=== PATIENT | male | born 1950 | race Caucasian/White ===

== ENCOUNTER 2017-11-08 07:59 | Emergency (ER) | payer MEDICARE ==
[2017-11-08] MEDS ORDERED: Acetaminophen/Codeine 30-300mg Tablet ONE (08:23)
[2017-11-08 08:51] LABS: Bilirubin Negative (Negative); Blood, Urine Negative (Negative); Clarity CLEAR (Clear); Glucose, Urine (Dipstick) Negative (Negative); Leukocyte Negative (Negative); Nitrite Negative (Negative); Protein, Urine (Dipstick) Trace mg/dL (Neg-Trace); Specific Gravity, Urine 1.016 (1.002-1.036); Urobilinogen 0.2 mg/dL (0.2-1.0); pH, Urine 7.5 (5.0-9.0)
--- NOTE | 2017-11-08 08:59 | CT ---
CT ABDOMEN AND PELVIS WITHOUT CONTRAST STONE PROTOCOL: Date: 11-08-17 History: Back pain, abdominal pain, right sided flank pain. Comparison: None. FINDINGS: There is volume loss in the lower lobes posteriorly. No pericardial effusion. There is aneurysmal dil atation of the aorta measuring 6.3 x 6.3 cm for a craniocaudad length of 12 cm. There is a obstructiv e calculus at the right proximal ureter measuring 2-3 mm causing moderate right sided hydronephrosis. This is caudad to the renal pelvis approximately 7 cm. No left sided hydroureteral nephrosis or neph roureterolithiasis. No acute osseous abnormality. No dilated air filled loops of large or small bowel. Appendix is visualized and is normal. IMPRESSION: 1. Partially obstructive calculus proximal right ureter, 6-7 cm distal to the right renal pelvis mel[place] uring 2-3 mm. Moderate right sided hydroureteronephrosis proximally. 2. Aneurysmal dilatation of the abdominal aorta extending from the level of the renal arteries down t o the bifurcation of the iliacs measuring 6.3 x 6.3 cm with a craniocaudal length of approximately 12 cm. CODE: T POS: [facility]
[2017-11-08] MEDS ORDERED: Ketorolac Tromethamine 30 MG/ML VIAL ONE (09:20)
[2017-11-08 09:52] LABS: #Basophils 0.1 thou/uL (0.0-0.2); #Eosinphils 0.1 thou/uL (0.0-0.7); #Monocytes 1.3 thou/uL (0.11-0.59); #Neutrophils 13.5 thou/uL (1.40-6.50); %Basophils 0.5 % (0.0-1.0); %Eosinophils 0.6 % (0.0-10.0); %Lymphocytes 11.6 % (21.0-51.0); %Monocytes 7.5 % (0.0-10.0); %Neutrophils 79.8 % (42.0-75.0); Mean Corpuscular Hemoglobin 33.7 pg (27.0-31.0); Mean Platelet Volume 8.2 fL (7.4-10.4); Platelet Count 282 thou/uL (130-400); RBC Distribution Width 14.4 % (11.5-14.5); Red Blood Cell (RBC) Count 5.04 mill/uL (4.70-6.10); White Blood Cell (WBC) Count 16.9 thou/uL (4.8-10.8)
[2017-11-08 10:20] LABS: ALT (SGPT) 18 U/L (8-55); AST (SGOT) 24 U/L (5-34); Albumin 3.7 g/dL (3.4-4.8); Alkaline Phosphatase 86 U/L (40-150); Anion Gap 16 mmol/L (10-20); BUN (Urea Nitrogen) 15 mg/dL (8.4-25.7); Bilirubin, Total 1.1 mg/dL (0.2-1.2); Calc. Creatinine Clearance 0 mL/min (70-130); Calcium 9.1 mg/dL (7.8-10.44); Carbon Dioxide 20 mmol/L (23-31); Chloride 103 mmol/L (98-107); Estimated GFR-MDRD 67; Globulin 3.6 g/dL (2.4-3.5); Glucose 106 mg/dL (80-115); Potassium 4.9 mmol/L (3.5-5.1); Protein, Total 7.3 g/dL (5.8-8.1); Sodium 134 mmol/L (136-145)
== END 2017-11-08 10:50 | disposition home or self-care (01) ==
LOC: ERS 07:59
DX: N13.2 Hydronephrosis with renal and ureteral calculous obstruction (principal); I71.4 Abdominal aortic aneurysm, without rupture; I10 Essential (primary) hypertension; J44.9 Chronic obstructive pulmonary disease, unspecified; F17.210 Nicotine dependence, cigarettes, uncomplicated
CPT/HCPCS: 36415; 74176; 80053; 81003; 85025; 96372; J1885

== ENCOUNTER 2018-04-26 06:32 | Outpatient (CLI) | payer MEDICARE | END 2018-04-26 06:33 | disposition home or self-care (01) | LOC: BICULT 06:32 | PROVIDERS: ATTEND Family Medicine | DX: Z13.6 Encounter for screening for cardiovascular disorders (principal); I71.4 Abdominal aortic aneurysm, without rupture | CPT/HCPCS: 76775 ==

== ENCOUNTER 2018-05-06 11:32 | Emergency (ER) | payer MEDICARE ==
[2018-05-06] MEDS ORDERED: ISOVUE-370 76%-LOCM 1 ML ONE (12:23)
[2018-05-06 13:33] LABS: #Eosinphils 0.4 thou/uL (0.0-0.7); #Lymphocytes 2.9 thou/uL (1.20-3.40); #Monocytes 1.5 thou/uL (0.11-0.59); #Neutrophils 11.9 thou/uL (1.40-6.50); %Basophils 0.3 % (0.0-1.0); %Eosinophils 2.4 % (0.0-10.0); %Lymphocytes 17.4 % (21.0-51.0); %Monocytes 8.8 % (0.0-10.0); %Neutrophils 71.1 % (42.0-75.0); Hemoglobin 17.5 g/dL (14.0-18.0); Mean Corpuscular HGB CONC 32.5 g/dL (32.0-36.0); Mean Corpuscular Hemoglobin 33.5 pg (27.0-31.0); Mean Platelet Volume 8.4 fL (7.4-10.4); Platelet Count 337 thou/uL (130-400); RBC Distribution Width 14.8 % (11.5-14.5); Red Blood Cell (RBC) Count 5.22 mill/uL (4.70-6.10); White Blood Cell (WBC) Count 16.8 thou/uL (4.8-10.8)
[2018-05-06 13:54] LABS: Anion Gap 15 mmol/L (10-20); BUN (Urea Nitrogen) 21 mg/dL (8.4-25.7); Calc. Creatinine Clearance 0 mL/min (70-130); Calcium 10.1 mg/dL (7.8-10.44); Carbon Dioxide 24 mmol/L (23-31); Chloride 101 mmol/L (98-107); Estimated GFR-MDRD 42; Glucose 99 mg/dL (80-115); Sodium 136 mmol/L (136-145)
--- NOTE | 2018-05-06 14:02 | CT ---
CT OF ABDOMEN AND PELVIS PERFORMED WITHOUT CONTRAST ENHANCEMENT: History: Right flank pain and dysuria. Comparison: 11-08-17 FINDINGS: The lung bases show some mainly chronic appearing changes with subsegmental atelectasis. The liver, spleen, pancreas, and gallbladder regions appear unremarkable. Right and left adrenal glands both have slightly hyperplastic appearance. Right and left kidneys are normal in size. There are vascular calcifications noted. There is moderate right sided hydronephrosis and hydroureter with perinephric and periureteral fat stranding. The uterus dilate to approximately mid pelvis level where there is approximately 4 mm calculus present. This is approximately 3 cm proxi mal to the right ureterovesical junction. It is possible that this represents 4 mm calcification and a tiny punctate calcification directly adjacent to it. This appears to represent migration of the chantel culus that was seen more proximally on the prior examination. A infrarenal abdominal aortic aneurysm is again demonstrated. It measures approximately 6.5 cm in siz e measured in the 6.3 to 6.4 cm range on the prior examination. Fat containing paraumbilical hernia is noted. The appendix is normal. IMPRESSION: 1. Moderate right sided hydronephrosis and hydroureter related to an approximately 4 mm distal right ureteral calculus located approximately 3 cm proximal to the right ureterovesical junction. There may actually be two small calculi at this level. 2. 6.5 cm infrarenal abdominal aortic aneurysm. On the previous examination, measurement is fairly si milar measuring in the 6.3 to 6.4 cm range. Other incidental findings as noted above. POS: [facility]
[2018-05-06 15:20] LABS: Bilirubin Negative (Negative); Blood, Urine Negative (Negative); Clarity CLEAR (Clear); Glucose, Urine (Dipstick) Negative (Negative); Leukocyte Negative (Negative); Nitrite Negative (Negative); Protein, Urine (Dipstick) Trace mg/dL (Neg-Trace); Specific Gravity, Urine 1.018 (1.002-1.036)
== END 2018-05-06 16:04 | disposition home or self-care (01) ==
LOC: ERS 11:32
DX: N13.2 Hydronephrosis with renal and ureteral calculous obstruction (principal); I12.9 Hypertensive chronic kidney disease with stage 1 through stage 4 chronic kidney disease, or unspecified chronic kidney disease; N18.9 Chronic kidney disease, unspecified; I71.4 Abdominal aortic aneurysm, without rupture; J44.9 Chronic obstructive pulmonary disease, unspecified; F17.210 Nicotine dependence, cigarettes, uncomplicated; Z79.899 Other long term (current) drug therapy
CPT/HCPCS: 36415; 74176; 80048; 81003; 85025

== ENCOUNTER 2018-08-30 08:53 | Outpatient (CLI) | payer MEDICARE ==
--- NOTE | 2018-08-30 09:54 | ULT ---
CAROTID ULTRASOUND WITH GRAYSCALE AND DOPPLER DUPLEX COLORFLOW IMAGING SPECTRAL ANALYSIS PERFORMED: INDICATIONS: Aortic aneurysm without rupture. FINDINGS: There is scattered moderate atherosclerotic calcification of the carotid arteries. PEAK SYSTOLIC VELOCITY (CM/S): Right CCA 73 Left CCA 117 Right ICA 133 Left ICA 105 There is antegrade flow within the visualized bilateral vertebral arteries. IMPRESSION: 1. Moderate (50%-69%) stenosis of the right internal carotid artery. 2. No hemodynamically significant stenosis of the left internal carotid artery. POS: [facility]
== END 2018-08-30 08:54 | disposition home or self-care (01) ==
LOC: BICULT 08:53
DX: I65.23 Occlusion and stenosis of bilateral carotid arteries (principal); I65.21 Occlusion and stenosis of right carotid artery
CPT/HCPCS: 93880

== ENCOUNTER 2018-11-26 14:59 | Inpatient (IN) | payer MEDICARE ==
[~2018-11-26 14:59] MED LIST: ISOVUE-370 76%-LOCM 1 ML ONE
[2018-11-26 15:43] LABS: Mean Corpuscular HGB CONC 33.2 g/dL (32.0-36.0); Mean Corpuscular Hemoglobin 34.5 pg (27.0-31.0); Platelet Count 246 thou/uL (130-400); RBC Distribution Width 14.7 % (11.5-14.5); Red Blood Cell (RBC) Count 4.63 mill/uL (4.70-6.10)
[2018-11-26 16:00] LABS: Anisocytosis SLIGHT = 6-15 cells (100X) (0-5/hpf); Band 32 % (5-11); Lymphocytes 8 % (21-51); MDiff Complete? YES; Monocytes 3 % (0-10); Neutrophil 57 % (42-75); Platelet Morphology Comment Appears Adequate
[2018-11-26 16:03] LABS: ALT (SGPT) 18 U/L (8-55); AST (SGOT) 21 U/L (5-34); Albumin 3.9 g/dL (3.4-4.8); Alkaline Phosphatase 108 U/L (40-150); Anion Gap 13 mmol/L (10-20); BUN (Urea Nitrogen) 16 mg/dL (8.4-25.7); Bilirubin, Total 1.8 mg/dL (0.2-1.2); Calc. Creatinine Clearance 0 mL/min (70-130); Calcium 9.8 mg/dL (7.8-10.44); Carbon Dioxide 26 mmol/L (23-31); Chloride 99 mmol/L (98-107); Estimated GFR-MDRD 52; Globulin 3.7 g/dL (2.4-3.5); Glucose 101 mg/dL (80-115); Potassium 4.3 mmol/L (3.5-5.1); Protein, Total 7.6 g/dL (5.8-8.1); Sodium 134 mmol/L (136-145)
--- NOTE | 2018-11-26 16:28 | RAD ---
PORTABLE CHEST: 11/26/18 HISTORY: Epigastric pain. Heart size is within normal limits. There are atherosclerotic changes of the aorta. There is some mil d chronic appearing lung changes seen. No signs of fracture or focal infiltrates. IMPRESSION: Chronic appearing lung change. POS: [facility]
[2018-11-26 16:51] LABS: Bilirubin Small (Negative); Blood, Urine Negative (Negative); Clarity CLEAR (Clear); Glucose, Urine (Dipstick) Negative (Negative); Leukocyte Negative (Negative); Nitrite Negative (Negative); Protein, Urine (Dipstick) 100 mg/dL (Neg-Trace); Specific Gravity, Urine 1.024 (1.002-1.036)
[2018-11-26 16:53] LABS: Pathc Cast-AUWi Flag 1.36 (0-2.49); Squamous Epithelial 0-3 HPF (0-3)
[2018-11-26 17:04] LABS: Bacteria/HPF Rare-Few HPF (None Seen); Hyaline Casts/LPF 0-3 HYALINE CAST LPF (0-3 Hyaline)
[2018-11-26 17:05] LABS: Renal Epithelial None Seen HPF (0-3); Transitional Epithelial NONE SEEN HPF (0-3)
[2018-11-26] MEDS ORDERED: Acetaminophen 325 MG TAB ONE (17:37)
[2018-11-26] MEDS ORDERED: Piperacillin/Tazobactam 4.5 GM VIAL ONE (17:37)
[2018-11-26] MEDS ORDERED: Nicotine 14 MG PATCH TOP SCH (18:30)
--- NOTE | 2018-11-26 19:47 | CT ---
CT OF ABDOMEN AND PELVIS PERFORMED WITH INTRAVENOUS CONTRAST ENHANCEMENT: 11/26/18 HISTORY: Abdominal pain, fever, and chills. COMPARISON: 05/06/18 study. The lung bases show some atelectatic change. The liver, spleen, and pancreas as well as gallbladder r egions appear unremarkable. Right and left adrenal glands are normal. There is a nonobstructing 4 to 5 mm lower pole right renal calculus. There are vascular calcifications associated with both the right and left renal pelvis. No ureteral dilatation or evidence for a ureteral calculus. The infrarenal abdominal aortic aneurysm has increased in size and measures 7.1 cm as compared to measurements more in the 6.5 to 6.6 cm range on the prior examination. It extends to the bifurcation, but does not involve the iliac arteries. There is marked inflammatory changes around the right colon, mainly the cecum region and what appears to represent a contained perforation. This is not related to the appendix as the appendix is actuall y visualized extending into the right inguinal canal. It is normal in caliber. Bladder wall appears slightly thickened even considering underdistention. No free fluid within the pe lvis. IMPRESSION: 1. Marked inflammatory change around the right colon mainly the cecum region. I suspect that the re is a contained perforation. There is wall thickening in this region. The etiology of this is uncle ar. It could be related to diverticular disease or other causes of colitis. The appendix itself is no rmal in caliber. The tip of the appendix actually extends into the right inguinal canal. No free air is demonstrated and no free fluid or any defined abscess collection. 2. Interval increase in size of the infrarenal abdominal aortic aneurysm, now measuring 7.1 cm. 3. Punctate nonobstructing right renal calculus. 4. Fat containing periumbilical hernia. POS: [facility] [place]
[2018-11-26] MEDS ORDERED: cloNIDine 0.1 MG TAB PO PRN (20:52)
[2018-11-26] MEDS ORDERED: hydrALAZINE 20 MG/ML VIAL SLOW IVP PRN (20:52)
[2018-11-26] MEDS ORDERED: Senokot S 8.6-50 MG TAB PO PRN (20:52)
[2018-11-26] MEDS ORDERED: Guaifenesin DM 100-10/5 ML UDCUP PO PRN (20:52)
[2018-11-26] MEDS ORDERED: HYDROcodone/Acetaminophen 7.5/325 mg Tablet PO PRN ×2 (20:52)
[2018-11-26] MEDS ORDERED: Nicotine 21 MG PATCH TD SCH (20:52)
[2018-11-26] MEDS ORDERED: Acetaminophen 325 MG TAB PO PRN (20:52)
[2018-11-26] MEDS ORDERED: Ondansetron ODT 4 MG TAB PO PRN (20:52)
[2018-11-26] MEDS ORDERED: Ondansetron PF 4 MG/2 ML Vial IVP PRN (20:52)
[2018-11-26] MEDS ORDERED: Acetaminophen 650 MG Suppository PR PRN (20:52)
[2018-11-26] MEDS ORDERED: Zolpidem Tartrate 5 MG TAB PO PRN (20:52)
[2018-11-26] MEDS ORDERED: Melatonin 3 MG TAB PO SCH (21:00)
[2018-11-26] MEDS ORDERED: Diazepam 5 MG TAB PO PRN (21:06)
[2018-11-26] MEDS ORDERED: Diazepam 5 MG TAB PO SCH (21:15)
[2018-11-26] MEDS ORDERED: Thiamine HCl 200 MG/2 ML VIAL IM SCH (21:15)
[2018-11-26] MEDS: Famotidine 20 MG TAB PO SCH (21:18)
[2018-11-26] MEDS: Sodium Chloride 0.9% 1,000 ML IV SCH (21:18)
[2018-11-26] MEDS ORDERED: Meropenem 1 GM in Sodium Chloride 0.9% 100 ML IVPB SCH (22:00)
[2018-11-26 22:20] VITALS: BMI 30.7
[2018-11-26] MEDS: MEROPENEM 1 GM/50 ML 1 GM in Premix Bag 1 BAG IVPB SCH (22:53)
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
[2018-11-27] MEDS ORDERED: Diazepam 5 MG TAB PO PRN (04:00)
[2018-11-27] MEDS: MEROPENEM 1 GM/50 ML 1 GM in Premix Bag 1 BAG IVPB SCH ×2 (05:01→16:56)
[2018-11-27] MEDS: Sodium Chloride 0.9% 1,000 ML IV SCH (05:02)
[2018-11-27 05:12] LABS: #Basophils 0.1 thou/uL (0.0-0.2); #Eosinphils 0.3 thou/uL (0.0-0.7); #Lymphocytes 2.3 thou/uL (1.20-3.40); #Monocytes 1.7 thou/uL (0.11-0.59); #Neutrophils 14.1 thou/uL (1.40-6.50); %Basophils 0.4 % (0.0-1.0); %Eosinophils 1.6 % (0.0-10.0); %Lymphocytes 12.2 % (21.0-51.0); %Monocytes 9.4 % (0.0-10.0); %Neutrophils 76.4 % (42.0-75.0); Hemoglobin 14.5 g/dL (14.0-18.0); Mean Corpuscular HGB CONC 32.9 g/dL (32.0-36.0); Mean Corpuscular Hemoglobin 33.9 pg (27.0-31.0); Mean Platelet Volume 8.9 fL (7.4-10.4); Platelet Count 235 thou/uL (130-400); RBC Distribution Width 14.6 % (11.5-14.5); Red Blood Cell (RBC) Count 4.28 mill/uL (4.70-6.10); White Blood Cell (WBC) Count 18.5 thou/uL (4.8-10.8)
[2018-11-27 05:35] LABS: Anion Gap 12 mmol/L (10-20); BUN (Urea Nitrogen) 13 mg/dL (8.4-25.7); Calc. Creatinine Clearance 89 mL/min (70-130); Calcium 8.4 mg/dL (7.8-10.44); Carbon Dioxide 22 mmol/L (23-31); Chloride 103 mmol/L (98-107); Estimated GFR-MDRD 67; Glucose 95 mg/dL (80-115); Potassium 3.8 mmol/L (3.5-5.1); Sodium 133 mmol/L (136-145)
--- NOTE | 2018-11-27 08:46 | PDOC.GSPN ---
Surgery Progress Note: Subj - Subjective Narrative: Patient feels good. He denies any abdominal pain. No nausea or vomiting. No fevers overnight. White count is down a little bit. He still has some tenderness in the right lower quadrant but this is much less than yesterday and very mild. No rigidity rebound or guarding. Assessment/plan: Colitis responding to medical management. Okay from a surgical standpoint to advance his diet. Continue antibiotics. Surgery Progress Note: Obj - Vital signs Vital signs: Vital Signs - Most Recent Temp Pulse Resp BP Pulse Ox 98.5 F 78 16 118/71 94 L 11/27/18 07:21 11/27/18 07:21 11/27/18 07:21 11/27/18 07:21 11/27/18 07:21 Surgery Progress Note: Results - Labs Result Diagrams: 11/27/18 04:54 11/27/18 04:54 Lab results: Laboratory Results - last 24 hr 11/27/18 11/27/18 04:54 04:54 WBC 18.5 H RBC 4.28 L Hgb 14.5 Hct 44.0 MCV 103.0 H MCH 33.9 H MCHC 32.9 RDW 14.6 H Plt Count 235 MPV 8.9 Neutrophils % 76.4 H Lymphocytes % 12.2 L Monocytes % 9.4 Eosinophils % 1.6 Basophils % 0.4 Neutrophils # 14.1 H Lymphocytes # 2.3 Monocytes # 1.7 H Eosinophils # 0.3 Basophils # 0.1 Sodium 133 L Potassium 3.8 Chloride 103 Carbon Dioxide 22 L Anion Gap 12 BUN 13 Creatinine 1.09 Estimated GFR (MDRD) 67 Glucose 95 Calcium 8.4
[2018-11-27] MEDS ORDERED: Thiamine 100 MG TAB PO SCH (09:00)
[2018-11-27] MEDS ORDERED: Folic Acid 1 MG TAB PO SCH (09:00)
[2018-11-27] MEDS ORDERED: Multivitamin W/ Minerals 1 TAB PO SCH (09:00)
[2018-11-27] MEDS ORDERED: Enoxaparin Sodium 40 MG/0.4 ML SYRINGE SC SCH (09:00)
[2018-11-27] MEDS ORDERED: Magnesium Oxide 400 MG TAB PO SCH (09:00)
--- NOTE | 2018-11-27 09:18 | PDOC.PN ---
- Subjective Encounter Start Date: 11/27/18 Encounter Start Time: 11:30 Subjective: Patient reports complete resolution of pain. No pain on palpation. ( -: thinks he is lying about this so he can leave today.) No N/V. No fever. -: Normal bowel movement this AM without blood or mucus. - Objective Resuscitation Status - Order Detail: 11/26/18 20:05 Resuscitation Status Routine Resuscitation Status: FULL: Full Resuscitation Discussed with: Patient MAR Reviewed: Yes Vital Signs & Weight: Vital Signs (12 hours) Temp Pulse Resp BP Pulse Ox 11/27/18 07:21 98.5 F 78 16 118/71 94 L 11/27/18 04:00 98.5 F 86 20 116/73 93 L 11/26/18 23:36 98.3 F 80 20 125/80 93 L Weight Weight 220 lb 7.396 oz Result Diagrams: 11/27/18 04:54 11/27/18 04:54 Phys Exam - Physical Examination Constitutional: NAD HEENT: moist MMs Respiratory: no wheezing, no rales, no rhonchi Cardiovascular: RRR, no significant murmur Gastrointestinal: soft, non-tender, no distention, positive bowel sounds Neurological: non-focal, moves all 4 limbs Psychiatric: normal affect, A&O x 3 Dx/Plan (1) Infectious colitis Code(s): A09 - INFECTIOUS GASTROENTERITIS AND COLITIS, UNSPECIFIED Status: Acute Comment: improving, advance diet, continue antibiotics- Meropenem since 11/26/18 (2) Sepsis Code(s): A41.9 - SEPSIS, UNSPECIFIED ORGANISM Status: Acute Comment: improving (3) COPD (chronic obstructive pulmonary disease) Status: Chronic (4) HTN (hypertension) Code(s): I10 - ESSENTIAL (PRIMARY) HYPERTENSION Status: Chronic (5) Alcohol abuse Code(s): F10.10 - ALCOHOL ABUSE, UNCOMPLICATED Status: Chronic Comment: [facility] protocol (6) Tobacco abuse Code(s): Z72.0 - TOBACCO USE Status: Chronic - Plan cont current plan of care, continue antibiotics, out of bed/ambulate, DVT proph w/lovenox, DVT proph w/SCDs Patient insistent on leaving today. I stressed to him that we need to give -: at least one more day of IV antibiotics and make sure pain continues to -: improve and able to tolerate diet. He eventually reluctantly agreed to stay -: until tomorrow morning when we recheck CBC. * . - Discharge Day Encounter end time: 11:40
[2018-11-27] MEDS: Famotidine 20 MG TAB PO SCH (09:47)
[2018-11-27 15:42] VITALS: BP 124/73; TEMP 98.3
--- NOTE | 2018-11-28 07:56 | DIS ---
DATE OF ADMISSION: 11/26/2018 DATE OF DISCHARGE: 11/27/2018 PRIMARY CARE PHYSICIAN: Dr. Inocencio Graham. REASON FOR ADMISSION: Abdominal pain and fever. DIAGNOSES AT DISCHARGE: 1. Infectious colitis with possible contained perforation. 2. Sepsis. 3. Chronic obstructive pulmonary disease. 4. Hypertension. 5. Alcohol abuse. 6. Tobacco abuse. 7. Enlarging abdominal aortic aneurysm, asymptomatic. PROCEDURES: CT abdomen and pelvis with contrast showing marked inflammatory change on the right colon mainly the cecal region, suspecting a contained perforation with some wall thickening in the region, possibly related to diverticular disease versus colitis. Normal appearing appendix. Also with continued abdominal aortic aneurysm, now 7.1 cm in size. CONSULTATIONS: General Surgery, Dr. Simons. SUMMARY OF HOSPITAL COURSE: This is a 68-year-old white male, complaining of a 2-day history of right lower quadrant abdominal pain, coming and going in intensity, associated with fevers and chills. He had an elevated white blood cell count and tachycardia in the emergency room, had a CT scan with above results. The patient was given antibiotics in the emergency room and started on meropenem. He was admitted to the hospital. Dr. Simons was consulted, who determined this was nonsurgical and recommended antibiotic treatment. The patient had resolution of his pain overnight. He was able to eat a normal diet today. No fever. His white blood cell count did improve from 24,000 to 18,000. I did strongly recommend that we do at least one more day of IV antibiotics, however, patient continued to insist on going home. Dr. Simons stated that he did not need surgery and that he could be discharged from a surgical standpoint. The patient is not nauseated or vomiting, and is having normal bowel movements and eating well, so I am letting him go home on oral antibiotics. I am recommending that he stop all alcohol while he is on his antibiotics as it can interact with the metronidazole and make him nauseated. DISCHARGE MANAGEMENT: Discharged home. ACTIVITY: As tolerated. DIET: Healthy heart diet. FOLLOWUP: Follow up with Dr. Graham in 7 days. He will need to discuss the enlarging aortic aneurysm and consider getting follow up with a specialist for endovascular repair, which is how he wants it. DISCHARGE MEDICATIONS: 1. Ciprofloxacin 500 mg twice a day for 12 days. 2. Metronidazole 500 mg 3 times a day for 12 days. 3. Continue amlodipine 5 mg daily. 4. Advair Diskus 250/50 mcg, one puff inhaled as directed. 5. Incruse Ellipta one inhalation daily. 6. Hyzaar 50/12.5 mg one tablet twice a day. Arranging the details of this discharge took 35 minutes. Job ID: [id number]
== END 2018-11-27 16:51 | disposition home or self-care (01) | DRG 872 ==
LOC: ERS 14:59 → SURG B 18:55
PROVIDERS: ADMIT Emergency Medicine; ATTEND Emergency Medicine
DX: A41.9 Sepsis, unspecified organism (principal); K57.92 Diverticulitis of intestine, part unspecified, without perforation or abscess without bleeding; A09 Infectious gastroenteritis and colitis, unspecified; J44.9 Chronic obstructive pulmonary disease, unspecified; I10 Essential (primary) hypertension; F17.210 Nicotine dependence, cigarettes, uncomplicated; I71.4 Abdominal aortic aneurysm, without rupture; F10.10 Alcohol abuse, uncomplicated; Z79.52 Long term (current) use of systemic steroids; Z79.899 Other long term (current) drug therapy
CPT/HCPCS: 36415; 71045; 74177; 80048; 80053; 81003; 81015; 83605; 85025; 87040; 87086; 93005; 96361; 96365; 96366; J1650; J2185; J2543; J3370; J3411; J3475; J3490; J7050; Q9966

== ENCOUNTER 2020-02-16 07:59 | Outpatient (CLI) | payer MEDICARE ==
[2020-02-16] MEDS ORDERED: Iopamidol-370 76% 500 ML 1 ML ONE (09:43)
--- NOTE | 2020-02-16 09:54 | CT ---
CT ABDOMEN AND PELVIS WITH IV CONTRAST: Date: 02/16/2020 HISTORY: Right-sided flank pain. Abdominal aortic aneurysm. COMPARISON: 11/26/2018. FINDINGS: Atelectatic changes in the lung bases are again seen. Liver, spleen, pancreas, and left kidney are normal. Prominent adrenal glands are stable. There is a 6.0 mm calculus in the right kidney. Right perinephric inflammatory changes are stable. No hydrourete ronephrosis is noted on either side. No free air, free fluid, or lymphadenopathy seen in the abdomen or pelvis. There has been interval in crease in size of the intrarenal abdominal aortic aneurysm which currently measures 8.0 cm. The small bowel loops are not abnormally dilated. Fat-containing right periumbilical hernia is again seen. There is colonic diverticulosis. There is right inguinal hernia containing fat and a normal appearing appendix. There are degenerative changes in the spine. IMPRESSION: 1. Increasing size of the abdominal aortic aneurysm since 11/26/2018, currently measuring 8.0 cm. 2. Nonobstructing 6.0 mm right renal calculus. 3. Right inguinal hernia containing appendix. 4. Colonic diverticulosis. CODE T. POS: [facility]
== END 2020-02-16 08:00 | disposition home or self-care (01) ==
LOC: BICCT 07:59
PROVIDERS: ATTEND Family Medicine
DX: I71.4 Abdominal aortic aneurysm, without rupture (principal); R10.9 Unspecified abdominal pain; N20.0 Calculus of kidney; K40.90 Unilateral inguinal hernia, without obstruction or gangrene, not specified as recurrent; K57.30 Diverticulosis of large intestine without perforation or abscess without bleeding
CPT/HCPCS: 74177; Q9967

== ENCOUNTER 2020-04-12 10:23 | Outpatient (CLI) | payer MEDICARE ==
--- NOTE | 2020-04-12 10:52 | RAD ---
EXAM: Single view of the abdomen HISTORY: History of kidney stones COMPARISON: None FINDINGS: Single view of the abdomen shows a nonspecific, nonobstructive bowel gas pattern. No suspi cious calcifications are seen. Mild degenerative changes are seen in the spine. IMPRESSION: Unremarkable exam
--- NOTE | 2020-04-12 10:59 | RAD ---
EXAM: 2 views of the lumbosacral spine HISTORY: Low back pain COMPARISON: None FINDINGS: 2 views of the lumbosacral spine shows normal height and alignment of the vertebral bodies and intervertebral discs without fracture or subluxation. Small osteophytes are seen throughout the lumbar spine. Posterior facet arthrosis is seen in the lower lumbosacral spine. The sacroiliac joints are unremarkable. IMPRESSION: Degenerative changes of the lumbar spine without acute osseous abnormality
--- NOTE | 2020-04-12 11:00 | RAD ---
EXAM: 3 views of the thoracic spine HISTORY: Thoracic spine pain COMPARISON: None FINDINGS: 3 views of the thoracic spine shows normal height and alignment of the vertebral bodies and intervertebral discs without fracture or subluxation. No significant degenerative changes are seen. IMPRESSION: No significant thoracic spine abnormality.
== END 2020-04-12 10:24 | disposition home or self-care (01) ==
LOC: BICRAD 10:23
PROVIDERS: ATTEND Physician Assistant
DX: M54.6 Pain in thoracic spine (principal); M54.5 Low back pain; Z87.442 Personal history of urinary calculi; M47.816 Spondylosis without myelopathy or radiculopathy, lumbar region
CPT/HCPCS: 72072; 72100; 74018

== ENCOUNTER 2021-04-04 07:31 | Outpatient (CLI) | payer MEDICARE | END 2021-04-04 07:32 | disposition home or self-care (01) | LOC: BICCT 07:31 | PROVIDERS: ATTEND Family Medicine | DX: Z12.2 Encounter for screening for malignant neoplasm of respiratory organs (principal); F17.210 Nicotine dependence, cigarettes, uncomplicated; J43.2 Centrilobular emphysema; J98.8 Other specified respiratory disorders; R59.0 Localized enlarged lymph nodes; R91.1 Solitary pulmonary nodule | CPT/HCPCS: 71271 ==

== ENCOUNTER 2021-07-15 12:17 | Inpatient (IN) | payer MEDICARE ==
[~2021-07-15 12:17] MED LIST changes: -ISOVUE-370 76%-LOCM 1 ML ONE; +Iopamidol-370 76% 500 ML 1 ML ONE; +Lorazepam 1 MG TAB PO PRN; +Lorazepam 1 MG TAB PO SCH
[2021-07-15 12:55] LABS: #Basophils 0.1 thou/uL (0.0-0.2); #Eosinphils 0.5 thou/uL (0.0-0.7); #Lymphocytes 2.6 thou/uL (1.20-3.40); #Neutrophils 6.1 thou/uL (1.40-6.50); %Basophils 0.8 % (0.0-1.0); %Eosinophils 4.7 % (0.0-10.0); %Lymphocytes 25.4 % (21.0-51.0); Mean Corpuscular HGB CONC 33.4 g/dL (32.0-36.0); Mean Corpuscular Hemoglobin 34.2 pg (27.0-31.0); Mean Platelet Volume 9.2 fL (7.4-10.4); Platelet Count 264 thou/uL (130-400); RBC Distribution Width 17.7 % (11.5-14.5); Red Blood Cell (RBC) Count 4.69 mill/uL (4.70-6.10); White Blood Cell (WBC) Count 10.4 thou/uL (4.8-10.8)
[2021-07-15 13:09] LABS: INR-International Normal Ratio 0.9; Prothrombin Time 12.4 sec (12.0-14.7)
[2021-07-15 13:10] LABS: PTT 30.8 sec (22.9-36.1)
[2021-07-15 13:12] LABS: ALT (SGPT) 17 U/L (8-55); AST (SGOT) 12 U/L (5-34); Albumin 3.7 g/dL (3.4-4.8); Alkaline Phosphatase 83 U/L (40-110); Anion Gap 12 mmol/L (10-20); BUN (Urea Nitrogen) 17 mg/dL (8.4-25.7); Bilirubin, Total 0.7 mg/dL (0.2-1.2); Calc. Creatinine Clearance 0 mL/min (70-130); Calcium 9.2 mg/dL (7.8-10.44); Carbon Dioxide 27 mmol/L (23-31); Chloride 104 mmol/L (98-107); Globulin 3.1 g/dL (2.4-3.5); Glucose 121 mg/dL (83-110); Protein, Total 6.8 g/dL (5.8-8.1); Sodium 139 mmol/L (136-145)
[2021-07-15] MEDS ORDERED: Aspirin 325 MG TAB ONE (13:30)
[2021-07-15] MEDS ORDERED: Acetaminophen 325 MG TAB PO PRN (14:53)
[2021-07-15] MEDS ORDERED: Ondansetron PF 4 MG/2 ML Vial IVP PRN (14:53)
[2021-07-15] MEDS ORDERED: hydrALAZINE 20 MG/ML VIAL SLOW IVP PRN (14:56)
[2021-07-15] MEDS ORDERED: Sodium Chloride 0.9% 1,000 ML IV SCH ×2 (15:00→20:30)
[2021-07-15] MEDS ORDERED: Nicotine 21 MG PATCH TD SCH (15:00)
[2021-07-15] MEDS ORDERED: Mometasone 200 MCG/Formoterol 5 MCG 120 PUFF INHALER INH PRN (15:19)
[2021-07-15 18:08] VITALS: BMI 33.8
[2021-07-15] MEDS: Albuterol 200 PUFF (6.7GM INHALER) INH SCH (19:27)
[2021-07-15] MEDS: Ipratropium Bromide 2.5 ml Neb NEB SCH (19:28)
[2021-07-15] MEDS ORDERED: Atorvastatin Calcium 40 MG TAB PO SCH (21:00)
[2021-07-15] MEDS ORDERED: Electrolyte Replacement Protocol 1 EACH FS PRN (23:00)
[2021-07-15] MEDS ORDERED: Thiamine HCl 200 MG/2 ML VIAL SLOW IVP SCH (23:00)
[2021-07-15] MEDS ORDERED: Ondansetron ODT 4 MG TAB PO PRN (23:00)
[2021-07-15] MEDS ORDERED: Lorazepam 2 MG/ML VIAL IM PRN (23:00)
[2021-07-16] MEDS ORDERED: Lorazepam 1 MG TAB PO SCH ×3 (00:45→06:00)
[2021-07-16] MEDS ORDERED: Lorazepam 2 MG/ML VIAL IM PRN (00:45)
[2021-07-16] MEDS: Ipratropium Bromide 2.5 ml Neb NEB SCH ×2 (02:00→07:33)
[2021-07-16 05:07] VITALS: TEMP 97.7
[2021-07-16 06:37] LABS: #Basophils 0.1 thou/uL (0.0-0.2); #Eosinphils 0.6 thou/uL (0.0-0.7); #Lymphocytes 2.2 thou/uL (1.20-3.40); #Monocytes 1.1 thou/uL (0.11-0.59); #Neutrophils 6.5 thou/uL (1.40-6.50); %Basophils 1.2 % (0.0-1.0); %Eosinophils 5.5 % (0.0-10.0); %Lymphocytes 20.9 % (21.0-51.0); %Monocytes 10.6 % (0.0-10.0); %Neutrophils 61.9 % (42.0-75.0); Hemoglobin 16.5 g/dL (14.0-18.0); Mean Corpuscular HGB CONC 32.1 g/dL (32.0-36.0); Mean Platelet Volume 9.6 fL (7.4-10.4); Platelet Count 262 thou/uL (130-400); RBC Distribution Width 17.5 % (11.5-14.5); White Blood Cell (WBC) Count 10.6 thou/uL (4.8-10.8)
[2021-07-16 07:07] LABS: Anion Gap 16 mmol/L (10-20); BUN (Urea Nitrogen) 17 mg/dL (8.4-25.7); Calc. Creatinine Clearance 90 mL/min (70-130); Calcium 9.3 mg/dL (7.8-10.44); Carbon Dioxide 20 mmol/L (23-31); Cardiac Risk 4.7 (Less than 4.5); Chloride 107 mmol/L (98-107); Cholesterol 174 mg/dl (< 200 Desired); Glucose 85 mg/dL (83-110); HDL Cholesterol 37 mg/dL (>60 Neg Risk); LDL Cholesterol, Calculated 90 mg/dL; Potassium 4.6 mmol/L (3.5-5.1); Sodium 138 mmol/L (136-145); Triglycerides 236 mg/dL (Less than 150)
[2021-07-16] MEDS: Albuterol 200 PUFF (6.7GM INHALER) INH SCH (07:32)
[2021-07-16] MEDS: Enoxaparin Sodium 40 MG/0.4 ML SYRINGE SC SCH ×2 (07:45→07:51)
[2021-07-16] MEDS ORDERED: Aspirin 325 mg Enteric Coated Tablet PO SCH (09:00)
[2021-07-16] MEDS ORDERED: Fish Oil 1,000 MG CAP PO SCH (09:00)
[2021-07-16] MEDS ORDERED: FLU VACC QS2021-22(65YR UP)/PF 240 MCG/0.7 ML SYRINGE IM ONE (09:00)
[2021-07-16] MEDS ORDERED: Amlodipine 5 MG TAB PO SCH (09:00)
[2021-07-16] MEDS ORDERED: Allopurinol 300 MG TAB PO SCH (09:00)
[2021-07-16] MEDS ORDERED: Hydrochlorothiazide 25 MG TAB PO SCH (09:00)
[2021-07-16] MEDS ORDERED: Multivit, Therapeutic 1 TAB PO SCH ×2 (09:00)
[2021-07-16] MEDS ORDERED: Tamsulosin HCl 0.4 MG CAP PO SCH (09:00)
[2021-07-16] MEDS ORDERED: Folic Acid 1 MG TAB PO SCH (09:00)
[2021-07-16] MEDS ORDERED: Clopidogrel Bisulfate 75 MG TAB PO SCH (09:00)
[2021-07-16] MEDS ORDERED: Dutasteride 0.5 MG CAP PO SCH (09:00)
[2021-07-16 12:26] VITALS: BP 162/89
[2021-07-16] MEDS ORDERED: Lorazepam 1 MG TAB PO PRN ×2 (23:00)
[2021-07-17] MEDS ORDERED: Lorazepam 1 MG TAB PO PRN ×2 (00:45→23:00)
[2021-07-17] MEDS ORDERED: Lorazepam 0.5 MG TAB PO SCH (06:00)
[2021-07-17] MEDS ORDERED: Lorazepam 1 MG TAB PO SCH (06:00)
[2021-07-18] MEDS ORDERED: Lorazepam 1 MG TAB PO PRN (00:45)
[2021-07-18] MEDS ORDERED: Lorazepam 0.5 MG TAB PO PRN (06:00)
[2021-07-18] MEDS ORDERED: Lorazepam 0.5 MG TAB PO SCH (06:00)
[2021-07-18] MEDS ORDERED: Thiamine 100 MG TAB PO SCH (09:00)
[2021-07-19] MEDS ORDERED: Lorazepam 0.5 MG TAB PO PRN (06:00)
== END 2021-07-16 11:35 | disposition home or self-care (01) | DRG 68 ==
LOC: ERS 12:17 → ERHOLD 14:15 → NEURO 17:36
PROVIDERS: ADMIT Internal Medicine; ATTEND Internal Medicine
DX: I65.21 Occlusion and stenosis of right carotid artery (principal); H34.9 Unspecified retinal vascular occlusion; N17.9 Acute kidney failure, unspecified; J44.9 Chronic obstructive pulmonary disease, unspecified; Z66 Do not resuscitate; F17.210 Nicotine dependence, cigarettes, uncomplicated; N18.2 Chronic kidney disease, stage 2 (mild); I12.9 Hypertensive chronic kidney disease with stage 1 through stage 4 chronic kidney disease, or unspecified chronic kidney disease; F10.20 Alcohol dependence, uncomplicated; E66.9 Obesity, unspecified; Z79.899 Other long term (current) drug therapy; Z79.51 Long term (current) use of inhaled steroids; Z79.82 Long term (current) use of aspirin; Z68.33 Body mass index [BMI] 33.0-33.9, adult
CPT/HCPCS: 36415; 36416; 70450; 70496; 70498; 70551; 71045; 80048; 80053; 80061; 84484; 85025; 85610; 85730; 90471; 90662; 90732; 93005; 94760; G0008; G0009; J1650; J3411; J7050; Q9967

== ENCOUNTER 2021-08-23 09:58 | Outpatient (CLI) | payer MEDICARE | END 2021-08-23 09:59 | disposition home or self-care (01) | LOC: BICRAD 09:58 | PROVIDERS: ATTEND Family Medicine | DX: J44.1 Chronic obstructive pulmonary disease with (acute) exacerbation (principal); J81.1 Chronic pulmonary edema | CPT/HCPCS: 71046 ==

== ENCOUNTER 2021-10-07 13:54 | Outpatient (CLI) | payer MEDICARE | END 2021-10-07 13:55 | disposition home or self-care (01) | LOC: BICCT 13:54 | PROVIDERS: ATTEND Family Medicine | DX: Z12.2 Encounter for screening for malignant neoplasm of respiratory organs (principal); F17.210 Nicotine dependence, cigarettes, uncomplicated; J44.9 Chronic obstructive pulmonary disease, unspecified; J98.4 Other disorders of lung | CPT/HCPCS: 71271 ==

== ENCOUNTER 2022-09-28 08:44 | Observation (INO) | payer MEDICARE, OTHER ==
[2022-09-28] MEDS ORDERED: Diltiazem 125 MG/25 ML ONE (08:53)
[2022-09-28 09:28] LABS: #Basophils 0.1 thou/uL (0.0-0.2); #Eosinphils 0.3 thou/uL (0.0-0.7); #Lymphocytes 2.3 thou/uL (1.20-3.40); #Monocytes 1.3 thou/uL (0.11-0.59); #Neutrophils 8.4 thou/uL (1.40-6.50); %Basophils 0.8 % (0.0-1.0); %Eosinophils 2.4 % (0.0-10.0); %Lymphocytes 18.5 % (21.0-51.0); %Monocytes 10.5 % (0.0-10.0); Hemoglobin 16.3 g/dL (14.0-18.0); Mean Corpuscular HGB CONC 32.7 g/dL (32.0-36.0); Mean Corpuscular Hemoglobin 32.2 pg (27.0-31.0); Mean Corpuscular Volume 98.5 fl (78.0-98.0); Mean Platelet Volume 10.7 fL (7.4-10.4); Platelet Count 262 10x3/uL (130-400); RBC Distribution Width 19.8 % (11.5-14.5); Red Blood Cell (RBC) Count 5.05 mill/uL (4.70-6.10); White Blood Cell (WBC) Count 12.3 10x3/uL (4.8-10.8)
[2022-09-28 09:42] LABS: Prothrombin Time 13.1 sec (12.0-14.7)
[2022-09-28 09:43] LABS: PTT 30.6 sec (22.9-36.1)
[2022-09-28] MEDS ORDERED: Magnesium 2 GM/50 ML BAG (IN WATER) ONE (10:32)
[2022-09-28] MEDS ORDERED: Ipratropium/Albuterol 3 ML NEB ONE (10:32)
[2022-09-28 10:44] LABS: ALT (SGPT) 17 U/L (8-55); AST (SGOT) 17 U/L (5-34); Albumin 3.9 g/dL (3.4-4.8); Alkaline Phosphatase 94 U/L (40-110); Anion Gap 15 mmol/L (10-20); BUN (Urea Nitrogen) 16 mg/dL (8.4-25.7); Bilirubin, Total 1.6 mg/dL (0.2-1.2); Calc. Creatinine Clearance 0 mL/min (70-130); Calcium 9.6 mg/dL (7.8-10.44); Carbon Dioxide 19 mmol/L (23-31); Chloride 107 mmol/L (98-107); Estimated GFR 74; Globulin 3.6 g/dL (2.4-3.5); Glucose 103 mg/dL (83-110); Magnesium 1.9 mg/dL (1.6-2.6); Potassium 4.6 mmol/L (3.5-5.1); Protein, Total 7.5 g/dL (5.8-8.1); Sodium 136 mmol/L (136-145)
[2022-09-28] MEDS ORDERED: Ondansetron PF 4 MG/2 ML Vial IVP PRN (11:35)
[2022-09-28] MEDS ORDERED: Calcium Carbonate 500 MG ChewTAB PO PRN (11:35)
[2022-09-28] MEDS ORDERED: HYDROcodone/Acetaminophen 5/325 mg Tablet PO PRN (11:35)
[2022-09-28] MEDS ORDERED: Acetaminophen 325 MG TAB PO PRN (11:35)
[2022-09-28] MEDS ORDERED: Diltiazem 125 MG in Sodium Chloride 0.9% 100 ML IVPB SCH ×2 (11:45→20:35)
[2022-09-28] MEDS ORDERED: Nicotine 21 MG PATCH TOP SCH (12:00)
[2022-09-28 12:59] LABS: Troponin I 0.063 ng/mL (< 0.028)
[2022-09-28 15:36] LABS: SARS-CoV-2 NAA Rapid Test Not Detected (NotDetected)
[2022-09-28 16:23] VITALS: BMI 32.3
[2022-09-28 16:25] LABS: Troponin I 0.154 ng/mL (< 0.028)
[2022-09-28] MEDS ORDERED: Lorazepam 2 MG/ML VIAL IM PRN (16:58)
[2022-09-28] MEDS ORDERED: Lorazepam 1 MG TAB PO PRN (16:58)
[2022-09-28] MEDS ORDERED: Electrolyte Replacement Protocol 1 EACH FS SCH (17:00)
[2022-09-28] MEDS ORDERED: Multivit, Therapeutic 1 TAB PO SCH (17:15)
[2022-09-28] MEDS ORDERED: Folic Acid 1 MG TAB PO SCH (17:15)
[2022-09-28] MEDS ORDERED: Thiamine 100 MG TAB PO SCH (17:15)
[2022-09-28 18:47] LABS: ALT (SGPT) 13 U/L (8-55); AST (SGOT) 14 U/L (5-34); Albumin 3.7 g/dL (3.4-4.8); Alkaline Phosphatase 79 U/L (40-110); Anion Gap 12 mmol/L (10-20); BUN (Urea Nitrogen) 17 mg/dL (8.4-25.7); Bilirubin, Total 1.3 mg/dL (0.2-1.2); Calc. Creatinine Clearance 84 mL/min (70-130); Carbon Dioxide 23 mmol/L (23-31); Chloride 106 mmol/L (98-107); Estimated GFR 70; Globulin 3.1 g/dL (2.4-3.5); Glucose 95 mg/dL (83-110); Potassium 4.4 mmol/L (3.5-5.1); Protein, Total 6.8 g/dL (5.8-8.1); Sodium 137 mmol/L (136-145)
[2022-09-28] MEDS: Apixaban 5 MG TAB PO SCH (21:01)
[2022-09-29 05:17] LABS: #Basophils 0.1 thou/uL (0.0-0.2); #Eosinphils 0.4 thou/uL (0.0-0.7); #Lymphocytes 2.4 thou/uL (1.20-3.40); #Monocytes 1.4 thou/uL (0.11-0.59); #Neutrophils 7.2 thou/uL (1.40-6.50); %Basophils 0.7 % (0.0-1.0); %Eosinophils 3.1 % (0.0-10.0); %Monocytes 11.9 % (0.0-10.0); %Neutrophils 63.4 % (42.0-75.0); Hemoglobin 15.7 g/dL (14.0-18.0); Mean Corpuscular HGB CONC 33.6 g/dL (32.0-36.0); Mean Corpuscular Hemoglobin 33.5 pg (27.0-31.0); Mean Corpuscular Volume 99.6 fl (78.0-98.0); Mean Platelet Volume 10.2 fL (7.4-10.4); Platelet Count 257 10x3/uL (130-400); RBC Distribution Width 19.7 % (11.5-14.5); Red Blood Cell (RBC) Count 4.71 mill/uL (4.70-6.10); White Blood Cell (WBC) Count 11.4 10x3/uL (4.8-10.8)
[2022-09-29 06:01] LABS: Anion Gap 12 mmol/L (10-20); BUN (Urea Nitrogen) 17 mg/dL (8.4-25.7); Calc. Creatinine Clearance 91 mL/min (70-130); Calcium 8.9 mg/dL (7.8-10.44); Carbon Dioxide 21 mmol/L (23-31); Chloride 109 mmol/L (98-107); Estimated GFR 76; Glucose 100 mg/dL (83-110); Potassium 4.2 mmol/L (3.5-5.1); Sodium 138 mmol/L (136-145)
[2022-09-29] MEDS ORDERED: Diltiazem 125 MG in Sodium Chloride 0.9% 100 ML IVPB SCH (06:45)
[2022-09-29] MEDS ORDERED: Magnesium 2 GM/50 ML(in water) 2 GM in Premix Bag 1 BAG IVPB SCH (08:00)
[2022-09-29] MEDS ORDERED: Thiamine 100 MG TAB PO SCH (09:00)
[2022-09-29] MEDS ORDERED: Folic Acid 1 MG TAB PO SCH (09:00)
[2022-09-29] MEDS ORDERED: Multivit, Therapeutic 1 TAB PO SCH (09:00)
[2022-09-29] MEDS: Apixaban 5 MG TAB PO SCH (09:38)
[2022-09-29 13:52] VITALS: BP 124/60; TEMP 100.9
[2022-09-29] MEDS ORDERED: Lorazepam 1 MG TAB PO PRN (16:58)
[2022-09-29] MEDS ORDERED: Dronedarone HCl 400 MG TAB PO SCH (17:00)
[2022-09-30] MEDS ORDERED: Lorazepam 1 MG TAB PO PRN (16:58)
[2022-10-01] MEDS ORDERED: Lorazepam 0.5 MG TAB PO PRN (16:58)
== END 2022-09-29 14:14 | disposition home or self-care (01) ==
LOC: ERS 08:44 → ERHOLD 11:37 → 2NO 15:29
PROVIDERS: ADMIT Family Medicine; ATTEND Family Medicine
DX: I48.91 Unspecified atrial fibrillation (principal); I10 Essential (primary) hypertension; J44.9 Chronic obstructive pulmonary disease, unspecified; F17.210 Nicotine dependence, cigarettes, uncomplicated; N40.0 Benign prostatic hyperplasia without lower urinary tract symptoms; R91.1 Solitary pulmonary nodule; I20.9 Angina pectoris, unspecified; I08.1 Rheumatic disorders of both mitral and tricuspid valves; Z79.899 Other long term (current) drug therapy; Z20.822 Contact with and (suspected) exposure to COVID-19
CPT/HCPCS: 71045; 71275; 80048; 83735 ×2; 83880; 84443; 84484 ×2; 85025; 85379; 85610; 85730; 93005 ×2; 93306; U0002; 36415; 80053; 93010; 96367; 96376; G0378; J1650; J3475; J3490; J7620

== ENCOUNTER 2024-09-16 22:42 | Observation (INO) | payer OTHER ==
[2024-09-16 23:11] LABS: #Basophils 0.16 10x3/uL (0.0-0.2); %Basophils 1.7 % (0.0-1.0); %Eosinophils 5.4 % (0.0-10.0); %Monocytes 9.8 % (0.0-10.0); %Neutrophils 59.6 % (42.0-75.0); Mean Corpuscular HGB CONC 28.6 g/dL (32.0-36.0); Mean Corpuscular Hemoglobin 21.9 pg (27.0-31.0); Mean Corpuscular Volume 76.7 fL (78.0-98.0); Mean Platelet Volume 9.4 fL (7.4-10.4); Platelet Count 397 10x3/uL (130-400); RBC Distribution Width 21.8 % (11.5-14.5); Red Blood Cell (RBC) Count 3.65 mill/uL (4.70-6.10)
[2024-09-16 23:27] LABS: ALT (SGPT) 7 U/L (Less than 45); AST (SGOT) 18 U/L (11-34); Albumin 3.5 g/dL (3.1-4.5); Alkaline Phosphatase 73 U/L (40-110); Anion Gap 14 mmol/L (10-20); BUN (Urea Nitrogen) 14 mg/dL (8.4-25.7); Bilirubin, Total 0.5 mg/dL (0.3-1.2); Calc. Creatinine Clearance 0 mL/min (70-130); Calcium 8.7 mg/dL (7.8-10.44); Carbon Dioxide 18 mmol/L (23-31); Chloride 109 mmol/L (98-107); Estimated GFR 59; Globulin 3.5 g/dL (2.4-3.5); Glucose 111 mg/dL (83-110); Potassium 4.2 mmol/L (3.5-5.1); Sodium 137 mmol/L (136-145)
[2024-09-16 23:45] LABS: Troponin I Less than 0.010 ng/mL (< 0.028)
[2024-09-17] MEDS ORDERED: Amiodarone 150 MG/3 ML VIAL ONE (01:00)
[2024-09-17] MEDS ORDERED: Acetaminophen 325 MG TAB PO PRN ×2 (02:00→15:46)
[2024-09-17] MEDS ORDERED: Ondansetron ODT 4 MG TAB SL PRN (02:00)
[2024-09-17] MEDS ORDERED: Ondansetron PF 4 MG/2 ML Vial IVP PRN (02:00)
[2024-09-17] MEDS ORDERED: Ipratropium/Albuterol 3 ML NEB EZPAP PRN (02:04)
[2024-09-17 02:46] LABS: Troponin I Less than 0.010 ng/mL (< 0.028)
[2024-09-17 03:07] VITALS: BMI 32.5
[2024-09-17] MEDS: Furosemide 20 MG (2 mL) VIAL SLOW IVP SCH (03:54)
[2024-09-17] MEDS: Enoxaparin 100 MG (1 mL) SYRINGE SC SCH (03:54)
[2024-09-17] MEDS ORDERED: Electrolyte Replacement Protocol FS SCH (04:00)
[2024-09-17] MEDS: Ipratropium/Albuterol 3 ML NEB EZPAP SCH (04:14)
[2024-09-17] MEDS: Thiamine HCl 200 MG/2 ML VIAL SLOW IVP SCH (04:53)
[2024-09-17 06:09] LABS: #Basophils 0.13 10x3/uL (0.0-0.2); %Basophils 1.5 % (0.0-1.0); %Eosinophils 5.7 % (0.0-10.0); %Lymphocytes 19.8 % (21.0-51.0); %Monocytes 11.4 % (0.0-10.0); %Neutrophils 61.2 % (42.0-75.0); Hematocrit 26.4 % (42.0-52.0); Hemoglobin 7.5 g/dL (14.0-18.0); Mean Corpuscular HGB CONC 28.4 g/dL (32.0-36.0); Mean Corpuscular Volume 77.4 fL (78.0-98.0); Mean Platelet Volume 9.4 fL (7.4-10.4); Platelet Count 364 10x3/uL (130-400); RBC Distribution Width 21.7 % (11.5-14.5); Red Blood Cell (RBC) Count 3.41 mill/uL (4.70-6.10)
[2024-09-17 06:27] LABS: Anion Gap 11 mmol/L (10-20); BUN (Urea Nitrogen) 15 mg/dL (8.4-25.7); Calc. Creatinine Clearance 75 mL/min (70-130); Calcium 8.4 mg/dL (7.8-10.44); Carbon Dioxide 22 mmol/L (23-31); Chloride 108 mmol/L (98-107); Estimated GFR 64; Glucose 98 mg/dL (83-110); Potassium 4.3 mmol/L (3.5-5.1); Sodium 137 mmol/L (136-145)
[2024-09-17 06:33] LABS: Troponin I 0.013 ng/mL (< 0.028)
[2024-09-17] MEDS: Ipratropium/Albuterol 3 ML NEB NEB SCH (07:43)
[2024-09-17] MEDS ORDERED: Magnesium 2 GM/50 ML(in water) 2 GM in Premix 1 BAG IVPB SCH (08:00)
[2024-09-17] MEDS: Isosorbide Mononitrate 30 MG ER.TAB PO SCH (09:01)
[2024-09-17] MEDS: Folic Acid 1 MG TAB PO SCH (09:01)
[2024-09-17] MEDS: Multivit, Therapeutic 1 TAB PO SCH (09:02)
[2024-09-17] MEDS: Amiodarone 450 MG in Dextrose 5% in Water 250 ML IVPB SCH (11:16)
[2024-09-17 14:28] VITALS: BP 144/70
[2024-09-17 14:54] VITALS: TEMP 97.9
[2024-09-17] MEDS ORDERED: Atorvastatin Calcium 40 MG TAB PO SCH (21:00)
[2024-09-18] MEDS ORDERED: Amiodarone 200 MG TAB PO SCH (09:00)
[2024-09-18] MEDS ORDERED: Pantoprazole 40 MG DR.TAB PO SCH (09:00)
[2024-09-20] MEDS ORDERED: Lorazepam 0.5 MG TAB PO PRN (03:50)
[2024-09-20] MEDS ORDERED: Thiamine 100 MG TAB PO SCH (04:00)
== END 2024-09-17 17:55 | disposition hospice, home (50) ==
LOC: ERS 22:42 → PCU 09-17 01:47 → INTOOBSV 09-17 01:47
PROVIDERS: ADMIT Internal Medicine; ATTEND Internal Medicine
DX: I48.92 Unspecified atrial flutter (principal); I48.91 Unspecified atrial fibrillation; I26.99 Other pulmonary embolism without acute cor pulmonale; I11.0 Hypertensive heart disease with heart failure; I50.32 Chronic diastolic (congestive) heart failure; J44.9 Chronic obstructive pulmonary disease, unspecified; R91.8 Other nonspecific abnormal finding of lung field; D64.9 Anemia, unspecified; F17.210 Nicotine dependence, cigarettes, uncomplicated; F10.20 Alcohol dependence, uncomplicated; Y90.9 Presence of alcohol in blood, level not specified; Z98.890 Other specified postprocedural states; Z79.01 Long term (current) use of anticoagulants; Z79.899 Other long term (current) drug therapy
CPT/HCPCS: 71045; 80048; 80053; 83735; 83880; 84484 ×3; 85025 ×2; 93005 ×2; 96372; 96375; 96376; 97116; G0378; J0282; J1650; J1940; J3411; J7070; 36415; 96374; J3475; J7620